=== PATIENT | female | born 1945 | race Caucasian/White ===

== ENCOUNTER → 2017-11-11 12:30 | Outpatient (CLI) | payer OTHER, SELFPAY ==
--- NOTE | 2017-11-11 | DI.MRI.S_ITS ---
PROCEDURE: MR KNEE LT WO CON INDICATIONS: RIGHT KNEE PAIN TECHNIQUE: Noncontrast sagittal PD fast spin echo and T2 fast spin echo with fat saturation, sagittal 3-D FLASH with fat saturation; coronal T1 spin echo and PD fast spin echo with fat saturation, and axial PD fast spin echo with fat saturation through the knee. COMPARISON: None. FINDINGS: Image quality: Excellent. Menisci: Mild truncated and frayed appearance of the free margin of the body of the lateral meniscus. Medial meniscal tear involving the posterior root, posterior horn and body with partial extrusion. There is extension to the undersurface and free margin Cruciate ligaments: The anterior and posterior cruciate ligaments appear intact. Medial structures: The medial collateral ligament appears intact. The posterior oblique ligament, semimembranosus tendon insertions, oblique popliteal ligament, and meniscocapsular junction appear intact. Visualized portions of the pes anserinus tendons appear normal. No abnormal bursal fluid. Lateral structures: The lateral collateral ligament, long and short heads of the biceps femoris tendon appear intact. The popliteus tendon appears normal; the popliteofibular ligament appears intact. The posterosuperior and anteroinferior popliteomeniscal fascicles appear intact. The arcuate and fabellofibular ligaments appear intact, on either side of the lateral inferior geniculate artery. Iliotibial band appears normal. Anterior structures: The quadriceps tendon intact. There is mild proximal and distal patellar tendinopathy with internal signal change Patellar alignment is normal. No femoral trochlear dysplasia or ventral trochlear prominence. No edema in the infrapatellar fat pad. Bones and cartilage: No bone marrow contusions or fractures. Within the medial compartment, there is diffuse partial thickness loss of the femoral and tibial articular cartilage with underlying marrow edema. In the lateral compartment, mild surface fraying of the femoral and tibial cartilage without focal defect. Within the patellofemoral compartment, full-thickness loss of the cartilage overlying the lateral patellar facet Joint space: Small joint effusion. 7 mm loose body seen in the suprapatellar recess, image 10 series 8 and image 7 series 3. Additional loose body seen in the popliteus bursa on image 10 series 8 measuring 5 mm a. Small French's cyst. IMPRESSION: Medial meniscal tear involving the posterior root, posterior horn and body with partial extrusion. Fraying of the free margin of the lateral meniscal body. Recommend clinical correlation. Tricompartmental degeneration as above. Small joint effusion. Multiple small loose bodies as above. Small French's cyst. Patellar tendinopathy. Dictated by: Bay Echavarria M.D. on 11/11/2017 at 14:46 Approved by: Bay Echavarria M.D. on 11/11/2017 at 14:53
== END ==
PROVIDERS: Visit Provider Orthopaedic Surgery
DX: S83.242A Other tear of medial meniscus, current injury, left knee, initial encounter (principal); M17.12 Unilateral primary osteoarthritis, left knee; M25.562 Pain in left knee; M71.22 Synovial cyst of popliteal space [Baker], left knee; M25.462 Effusion, left knee
CPT/HCPCS: 73721

== ENCOUNTER → 2020-11-28 16:20 | Outpatient (CLI) | payer OTHER, SELFPAY ==
--- NOTE | 2020-11-28 | DI.MRI.S_ITS ---
PROCEDURE: MR HEAD/BRAIN WO CON INDICATIONS: Hemiplegia, unspecified affecting unspecified side TECHNIQUE: Non-contrast axial T1 spin echo, axial T2 fast spin echo, sagittal and axial FLAIR, coronal T2 fast spin echo, axial gradient echo, axial diffusion and ADC through the brain. COMPARISON: None. FINDINGS: Image quality: Diagnostic, with note made of motion artifact. CSF spaces: Ventricles appear symmetric in size and shape. Basal cisterns are patent. No extra-axial fluid collections. Brain: No intracranial bleeds or mass effects. There is cerebral volume loss for age. There are periventricular and deep white matter chronic small vessel ischemic changes. Brainstem appears normal. Diffusion-weighted images show no acute ischemic insults. No chronic ischemic insults. Normal intravascular flow voids are present. Note is made of a cavum septum pellucidum. When discovered in isolation, this is considered to be a developmental variant of no clinical consequence. Skull and face: Calvarial bone marrow is normal in signal. Orbits are normal. Note is made of bilateral lens replacements. Sinuses: Sinuses and mastoids are clear. IMPRESSION: No findings of acute or subacute infarction can be seen. Note is made of age-appropriate brain parenchymal volume loss and chronic small vessel ischemic changes. Dictated by: Fredo Woodruff M.D. on 11/28/2020 at 16:17 Approved by: Fredo Woodruff M.D. on 11/28/2020 at 16:19
== END ==
PROVIDERS: PCP Registered Nurse; Referring Provider Internal Medicine; Visit Provider Internal Medicine
DX: I67.81 Acute cerebrovascular insufficiency (principal); G81.90 Hemiplegia, unspecified affecting unspecified side
CPT/HCPCS: 70551

== ENCOUNTER → 2020-12-20 12:46 | Outpatient (CLI) | payer OTHER, SELFPAY ==
--- NOTE | 2020-12-20 12:48 | DI.MRI.S_ITS ---
PROCEDURE: MR LUMBAR SPINE WO CON INDICATIONS: Foot drop, left foot TECHNIQUE: Noncontrast sagittal T1 spin echo and T2 fast echo, sagittal STIR, axial T1 and T2 fast spin echo through the lumbar spine. In cases with scoliosis, additional coronal T2 fast spin echo may be performed. COMPARISON: None. FINDINGS: Image quality: Excellent. Alignment and Curvature: There is trace L1-L2 retrolisthesis and L5-S1 anterolisthesis. Convex left lumbar spine scoliosis. Bone Marrow: Mild reactive endplate changes noted adjacent to the L2-L3, L3-L4, L4-L5 and L5-S1 discs. No acute vertebral body compression fractures. Spinal Cord: Conus medullaris terminates at the L1-2 disc level. Visualized cord demonstrates normal signal and size. Paraspinous Soft Tissues: No paravertebral masses. T12-L1: Loss of disc signal. No central stenosis. No neural foraminal narrowing. No neural compression. L1-L2: Loss of disc signal and height. Mild, diffuse disc bulge. Mild narrowing of the central canal. Mild bilateral neural foraminal narrowing. No neural compression. L2-L3: Loss of disc signal. Mild to moderate diffuse disc bulge. Mild narrowing of the central canal. Mild bilateral neural foraminal narrowing. No neural compression.. L3-L4: Loss of disc signal and height. Mild, diffuse disc bulge. [id number] bilateral facet hypertrophy. Mild to moderate narrowing of the central canal. Moderate right and mild left neural foraminal narrowing. No neural compression. L4-L5: Loss of disc signal and height. Mild, diffuse disc bulge. Mild right and moderate left facet hypertrophy. Mild to moderate narrowing of the central canal. Mild right and moderate to severe left neural foraminal narrowing. No neural compression. L5-S1: Loss of disc signal. Mild, diffuse disc bulge. Mild bilateral facet hypertrophy. No central stenosis. Mild bilateral neural foraminal narrowing. No neural compression. Fissure noted in the posterior annulus. IMPRESSION: 1. Convex left scoliosis. 2. Multilevel degenerative disc disease. 3. Multilevel facet arthropathy. 4. No severe central canal narrowing. 5. No severe neural foraminal narrowing. 6. No neural compression Dictated by: Crystal Chavez MD, PhD on 12/22/2020 at 14:26 Approved by: Crystal Chavez MD, PhD on 12/22/2020 at 14:44
== END ==
PROVIDERS: PCP Registered Nurse; Referring Provider Registered Nurse; Visit Provider Registered Nurse
DX: M21.372 Foot drop, left foot (principal); M41.86 Other forms of scoliosis, lumbar region; M51.36 Other intervertebral disc degeneration, lumbar region; M51.37 Other intervertebral disc degeneration, lumbosacral region; M47.816 Spondylosis without myelopathy or radiculopathy, lumbar region; M47.817 Spondylosis without myelopathy or radiculopathy, lumbosacral region
CPT/HCPCS: 72148

== ENCOUNTER → 2021-03-24 11:41 | Outpatient (CLI) | payer OTHER, SELFPAY ==
--- NOTE | 2021-03-24 11:42 | DI.MRI.S_ITS ---
PROCEDURE: MR SHOULDER RT WO CON INDICATIONS: Impingement syndrome of right shoulder TECHNIQUE: Noncontrast oblique coronal T2 fast spin echo with fat saturation, oblique sagittal T1 spin echo and T2 fast spin echo with fat saturation, axial T1 spin echo and T2 fast spin echo with fat saturation through the shoulder. COMPARISON: [facility], MR, MR SHOULDER RIGHT WITHOUT CONTRAST, 11/18/2015, 12:08. [facility] [place], CR, XR SHOULDER 2+ VIEWS RIGHT, 03/04/2021, 11:47. FINDINGS: Image quality: Excellent. Rotator cuff: There is mild T2 signal elevation throughout the supraspinatus and infraspinatus tendons at the humeral insertion sites, indicating tendinopathy. There is new full-thickness tearing of the mid and anterior supraspinatus tendon at the humeral insertion site, measuring roughly 15 mm anteroposterior. Subscapularis, infraspinatus, and teres minor tendons are intact. Bones and bursae: No bone marrow contusions or fractures. Subchondral cysts within the posterior glenoid. Moderate acromioclavicular joint degeneration. The acromion demonstrates conventional anatomy, without an os acromiale. No pathologic subacromial-subdeltoid or subcoracoid bursal fluid is present. Capsule and soft tissues: Demonstrates diffuse undercutting posteriorly. The long head of the biceps tendon demonstrates normal location and morphology. The rotator interval appears normal, without fibrosis. The coracohumeral ligament is normal in thickness. IMPRESSION: 1. Supraspinatus and infraspinatus tendinopathy. Superimposed full-thickness tearing of the mid/anterior supraspinatus tendon. 2. Acromioclavicular joint osteoarthritis. 3. Posterior labral tearing. Dictated by: Reynaldo Yeh M.D. on 03/24/2021 at 14:23 Approved by: Reynaldo Yeh M.D. on 03/24/2021 at 14:25
== END ==
PROVIDERS: PCP Registered Nurse; Referring Provider Orthopaedic Surgery Foot and Ankle Surgery; Visit Provider Orthopaedic Surgery Foot and Ankle Surgery
DX: M75.111 Incomplete rotator cuff tear or rupture of right shoulder, not specified as traumatic (principal); M75.41 Impingement syndrome of right shoulder; M19.011 Primary osteoarthritis, right shoulder; S43.491A Other sprain of right shoulder joint, initial encounter
CPT/HCPCS: 73221